=== PATIENT | female | born 1990 | race Caucasian/White ===

== ENCOUNTER 2020-03-12 16:26 | Outpatient (CLI) | payer OTHER, SELFPAY ==
--- NOTE | ~2020-03-12 | XR_ITS ---
EXAMINATION: XR knee RT 3V DATE: 03/12/2020 16:50 INDICATION: Right knee mass and pain. TECHNIQUE: 3 views of right knee were obtained. COMPARISON: None. FINDINGS: Bone alignment is normal. No fracture. There is mild osteoarthritis of medial and patellofe moral compartments characterized by tiny marginal osteophytes. No knee joint effusion. IMPRESSION: 1. Mild right knee osteoarthritis. Reviewed, dictated and finalized at location A. TENANCE OF WAY CLERK
== END 2020-03-12 16:27 | disposition home or self-care (01) ==
PROVIDERS: PCP Internal Medicine; Visit Provider Clinical Nurse Specialist
DX: M17.11 Unilateral primary osteoarthritis, right knee (principal)
CPT/HCPCS: 73562

== ENCOUNTER 2020-04-03 07:45 | Outpatient (RCR) | payer OTHER, SELFPAY ==
--- NOTE | 2020-03-29 16:17 | PTOPEVAL ---
PHYSICAL THERAPY EVALUATION AND PLAN OF CARE 03-29-2020 Thank you for referring Elsie Mcdermott to [facility].? She is scheduled to be seen for therapy? 2x/week for 4 weeks. Please review, sign, date and return this plan of care TRINH. I agree with and certify that the following plan of care is medically necessary. Referring Physician Date Attending Provider: Ines Love NP PT Outpatient Evaluation Document 03/29/20 15:10 QIAN (Rec: 03/29/20 16:10 QIAN [id number]) Outpatient Past Medical History Past Medical History Source of Past Medical History Patient Neurological History Hx Other Neurological Disorders Yes: cerebral palsy Cardiovascular History Hx Cardiac Disorders No Significant History Respiratory History Hx Respiratory Disorders No Significant History Gastrointestinal History Hx Gastrointestinal Disorders No Significant History Genitourinary History Hx Genitourinary Disorders No Significant History Musculoskeletal History Hx Other Musculoskeletal Disorders Yes: adductor hip tendon release & heel cord B release Endocrine History Hx Endocrine Disorders No Significant History HEENT History Hx HEENT Disorders No Significant History Reproductive History Hx Section Yes Psychosocial History Hx Depression Yes Evaluation Information Problem Diagnosis R knee OA Onset Dec 19, 2019 Subjective Information gradual increase in knee pain; Query Text:As Reported By Patient/ both knees hurt, but R is Family worse; WOMAC score 30% limitation Diagnostic Tests X-Rays For This Problem Yes: OA MRI For This Problem Yes: 2 years ago, negative, stepped off bus step & hurt Previous Treatments Previous Treatments For This Problem no therapy for knee Prior Level of Function Activity Level (Last 3 Months) Occupation teacher- just returned from [employer] Activity of Daily Living Ability Independent Indoor/Home Mobility Independent Community Mobility Independent Stairs Ability Independent Functional Cognition (Planning, Shopping Independent , Taking Medications) Cooking Yes Cleaning Yes Laundry Yes Shopping Yes Driving Yes Comments Additional Prior Level of Function problems with stairs and Comments bending down; wear heel lift in L shoe; do HEP: heel cord stretch at edge of step, hamstring doorway stretches; Pain Assessment Timing of Pain Asse
--- NOTE | 2020-04-05 13:06 | PCPTNOTE ---
pt did not show for today's appt; called her and left a voice mail message, with reminder of appt time for next week.
--- NOTE | 2020-04-09 15:03 | PCPTNOTE ---
pt did not show for today's appt; called and left voice message with reminder for next appt, which is tomorrow;
--- NOTE | 2020-04-10 13:05 | PCPTNOTE ---
Patient did not show up for scheduled appointment this date. Called and left voicemail for Pt about upcoming appointment on 04/15 at 13:15. Explained to Pt this is her third no-show/no-call and if she does not show or call for Wednesday's appointment she has a possibility of being discharged. Left office number if pt had any questions or concerns.
--- NOTE | 2020-04-15 14:02 | PCPTNOTE ---
Patient did not show up for scheduled appointment this date.
--- NOTE | 2020-04-16 16:03 | PCPTNOTE ---
PHYSICAL THERAPY DISCHARGE 04-16-2020 Attending Provider: Ines Love NP Patient:Elsie Mcdermott Date of :1990 Ms. Mcdermott has not returned for any further treatments since the initial evaluation on 04/03/2020. She did not show for 4 scheduled appointments, therefore she will be discharged at this time. The goals were not met. Thank you for referring this patient to [facility]. Please review, sign, date and return this discharge summary TRINH. I have been updated about the patient's current status and I agree with discharge from the above service at this time. Referring Physician Date
== END 2020-06-12 08:55 | disposition home or self-care (01) ==
LOC: ANHPT 07:45
PROVIDERS: PCP Internal Medicine; Visit Provider Nurse Practitioner
DX: M17.11 Unilateral primary osteoarthritis, right knee (principal)
CPT/HCPCS: 97110; 97162

== ENCOUNTER 2020-09-14 11:40 | Emergency (ER) | payer OTHER, SELFPAY ==
[2020-09-14 11:49] VITALS: BP 139/79; PULSE 70; RESP 18; TEMP 36.8; O2SAT 100
--- NOTE | 2020-09-14 13:16 | ED.GENADULT ---
HPI - General Adult General Chief complaint: Anxiety Stated complaint: having side effects to medication Time Seen by Provider: 09/14/20 11:52 Source: patient Mode of arrival: ambulatory Limitations: no limitations History of Present Illness HPI narrative: Patient presents for evaluation of what she states is a panic attack. She states she has a hx of anxiety and depression and has been taking cymbalta 30mg PO BID for many years. She states she had a visit with her PMHNP earlier this week. She states she was told to decrease her cymbalta to 30mg daily and start sertraline 50mg daily. She took both medication on . She forgot to take both medications yesterday. She took both medications this morning. She denies any SI, HI, AH, VH. She indicates she has been having panic attacks multiple times per day. She states that these are partially related to stress associated with living with her brother. She indicates she lives with her brother and her grandmother. She states she feels she needs some medication to help with anxiety while her other medication is being transitioned. She is not sure if ultimate goal is to stop cymbalta completely or to simply move to daily dosing of 30mg to take with sertraline. She smokes marijuana but denies any other street drugs. She states that she has racing thoughts, some difficulty breathing during these episodes. She states her symptoms have improved since being in the emergency department. In the past she has used valium with favorable results Related Data Home Medications Medication Instructions Recorded Confirmed duloxetine 60 mg capsule,delayed 60 mg PO DAILY 03/12/20 03/22/20 release trazodone 50 mg tablet 100 mg PO DAILY tablet 03/12/20 03/22/20 sertraline 50 mg PO DAILY 09/14/20 09/14/20 Allergies Allergy/AdvReac Type Severity Reaction Status Date / Time No Known Allergies Allergy Verified 09/14/20 11:52 Review of Systems Review of Systems: Narrative: CONSTITUTIONAL: Denies fever, chills, or sweats. EYES: Denies visual changes, redness, or discharge. ENT: Denies rhinorrhea, congestion, sore throat, or otalgia. CARDIOVASCULAR: Denies chest pain, palpitations, or edema. RESPIRATORY: Denies cough or dyspnea. GASTROINTESTINAL: Denies abdominal pain, nausea, vomiting, or diarrhea. GENITOURINARY: Denies dysuria or hematuria. SKIN: Denies rash or itching. MUSCULOSKELETAL: Denies back pain, joint pain, or myalgia. NEUROLOGIC: Reports racing thoughts. Denies headache, numbness, dizziness, or weakness. PSYCHIATRIC: Reports anxiety. Denies SI, HI, AH, VH PMFSH Past Medical History Medical History Adductor tendinitis 1992 Anxiety Anxiety Cerebral palsy Depression Short heel cord 1992 Surgical History Surgical History History of tonsillectomy 1996 Family History Family History Father Bipolar disorder Grandparent Hypercholesterolemia Social History Social History Smoking status: Never smoker Alcohol intake: never Substance use type: marijuana Living arrangements: with family Gender identity (if verbalized by the patient): Female Sexual Orientation (if Verbalized by the Patient): Straight or Heterosexual Spiritual care concerns: No Exam Narrative: Exam Narrative: VS: 36.8 T, 70 HR, 18 RR, 100% RA, 139/79 BP GENERAL: Well-appearing, well-nourished, and in no acute distress. HEAD: Normocephalic, atraumatic. EYES: PERRLA and EOMI. ENT: Nares clear, no rhinorrhea or epistaxis. Mucous membranes moist. Oropharynx without tonsillar hypertrophy exudate or other lesions. Bilateral TMs pearly mcdermott nonbulging NECK: Supple. No adenopathy or masses. No carotid bruits or JVD CHEST: Clear to auscultation. No resp
[2020-09-14 14:01] VITALS: BP 132/68; PULSE 76; RESP 14; O2SAT 97
--- NOTE | 2020-09-14 16:33 | ECG_ITS ---
Measurements Intervals [place] Rate: 70 P: 54 FL: 146 QRS: 51 QRSD: 91 T: 52 QT: 372 QTc: 404 Interpretive Statements SINUS RHYTHM WITH SINUS ARRHYTHMIA BASELINE ARTIFACT- III NORMAL ECG Electronically Signed On 09-14-2020 18:22:36 CDT by Isidro Mcclain D.O.
== END 2020-09-14 14:03 | disposition home or self-care (01) ==
PROVIDERS: Emergency Provider Nurse Practitioner; PCP Internal Medicine
DX: F41.0 Panic disorder [episodic paroxysmal anxiety] (principal); F32.9 Major depressive disorder, single episode, unspecified; G80.9 Cerebral palsy, unspecified
CPT/HCPCS: 93005; 99283